=== PATIENT | female | born 1975 | race Caucasian/White ===

== ENCOUNTER 2020-04-14 10:47 | Emergency (ER) | payer OTHER ==
[~2020-04-14] VITALS: Ht 162.6 cm; Wt 59.1 kg
[2020-04-14 11:00] VITALS: BP 156/78
--- NOTE | 2020-04-14 11:14 | PHYS DOC ---
General Adult EDM: Chief Complaint: LOWEREXTREMITY INJURY HPI: HPI: Patient is a 4-year-old female who presented to ER today for evaluation of right leg injury. Patient says she tried to split some wood yesterday, see you a rubber mallet to hit wood accidentally whacked her right leg. Patient has been having pain and swelling her right leg since. Denies any trouble breathing. Hurt when she walks. Review of Systems: Review of Systems: Constitutional: Denies fever or chills Eyes: Denies change in visual acuity HENT: Denies nasal congestion or sore throat Respiratory: Denies cough or shortness of breath Cardiovascular: Denies chest pain or edema GI: Denies abdominal pain, nausea, vomiting, bloody stools or diarrhea : Denies dysuria Musculoskeletal: Denies back pain or joint pain Integument: Denies rash Neurologic: Denies headache, focal weakness or sensory changes Endocrine: Denies polyuria or polydipsia Lymphatic: Denies swollen glands Psychiatric: Denies depression or anxiety Heart Score: Risk Factors: Risk Factors: DM, Current or recent (<one month) smoker, HTN, HLP, family history of CAD, obesity. Risk Scores: Score 0 - 3: 2.5% MACE over next 6 weeks - Discharge Home Score 4 - 6: 20.3% MACE over next 6 weeks - Admit for Clinical Observation Score 7 - 10: 72.7% MACE over next 6 weeks - Early Invasive Strategies Allergies: Allergies: Allergies Coded Allergies Type Severity Reaction Last Updated Verified No Known Drug Allergies 04/14/20 No Physical Exam: PE: Constitutional: Well developed, well nourished, no acute distress, non-toxic appearance. [] HENT: Normocephalic, atraumatic, bilateral external ears normal, oropharynx moist, no oral exudates, nose normal. [] Eyes: PERRLA, EOMI, conjunctiva normal, no discharge. [] Neck: Normal range of motion, no tenderness, supple, no stridor. [] Cardiovascular:Heart rate regular rhythm, no murmur [] Lungs & Thorax: Bilateral breath sounds clear to auscultation [] Abdomen: Bowel sounds normal, soft, no tenderness, no masses, no pulsatile masses. [] Skin: Warm, dry, no erythema, no rash. [] Back: No tenderness, no CVA tenderness. Neurologic: Alert and oriented X 3, normal motor function, normal sensory function, no focal Extremities: THERE IS AN AREA OF SKIN CONTUSION ON THE ANTERIOR PART OF RIGHT PROXIMAL LEG AREA, NO OPEN WOUND, NO EVIDENCE OF COMPARTMENT SYNDROME. Psychologic: Affect normal, judgement normal, mood normal. [] EKG: EKG: [] Radiology/Procedures: Radiology/Procedures: [][place] [address] IMAGING REPORT Signed PATIENT: NELDA LOPEZ ACCOUNT: [id number] : 1975 LOCATION: ER AGE: 44 SEX: F EXAM STATUS: REG ER ORD. PHYSICIAN: CAROLIN BANG DO REASON: right leg injured PROCEDURE: TIBIA FIBULA RIGHT EXAM: RIGHT TIBIA/FIBULA 2 VIEWS. HISTORY: Right leg injury. COMPARISON: None. FINDINGS: No fractures are identified. The joint spaces and alignment of the knee and ankle are grossly maintained. IMPRESSION: 1. No fracture. Electronically signed by: Mariana Galindo MD (04/14/2020 11:33 AM) [id number] DICTATED AND SIGNED BY: ANDREW GALINDO MD DATE: 04/14/20 1133 CC: MANISHA VALENTE MD; CAROLIN BANG DO ~ Course & Med Decision Making: Course & Med Decision Making Pertinent Labs and Imaging studies reviewed. (See chart for details) Patient is a 43-year-old female who was evaluated in ER due to right leg injury. X-ray of the right tib-fib did not show any acute problem. Patient has superficial skin contusion. Patient will be discharged home, Uziel wrap was applied to the injured area, patient was advised to apply ice to the contusion area. Dragon Disclaimer: Dragon Disclaimer: This electronic medical record was generated, in whole or in part, using a voice recognition dictation system. Departure Departure: Impression: Primary Impression: Contusion of right leg Disposition: 01 HOME/RESIDENCE PRIOR TO ADM Condition: STABLE Referrals: MANISHA VALENTE MD (PCP) please follow up with your doctor as needed Patient Instructions: Contusion Justification of Admission: Justification of Admission: Justification of Admission Dx: N/A CAROLIN BANG DO Apr 14, 2020 11:14
--- NOTE | 2020-04-14 11:36 | RAD ---
EXAM: RIGHT TIBIA/FIBULA 2 VIEWS. HISTORY: Right leg injury. COMPARISON: None. FINDINGS: No fractures are identified. The joint spaces and alignment of the knee and ankle are grossly maintained. IMPRESSION: 1. No fracture. Electronically signed by: Mariana Galindo MD (04/14/2020 11:33 AM) [id number]
== END 2020-04-14 12:10 | disposition home or self-care (01) ==
LOC: ER 10:47
DX: S80.11XA Contusion of right lower leg, initial encounter (principal); W22.8XXA Striking against or struck by other objects, initial encounter; Y93.89 Activity, other specified; Y92.89 Other specified places as the place of occurrence of the external cause; Y99.8 Other external cause status
CPT/HCPCS: 73590; 99283